=== PATIENT | female | born 1935 | race Caucasian/White ===

== ENCOUNTER 2016-07-16 16:49 | Emergency (ER) | payer MEDICARE ==
[~2016-07-16] VITALS: Ht 154.9 cm; Wt 47.7 kg
[~2016-07-16 16:49] MED LIST: ALPR1TAB7 PO; ASPI-628 PO; CARV25TA2 PO; DOCU100C8 PO; FLUT10.62 IH; FRSM80T PO; LISI-567 PO; NEPHVIT PO; OMEG1CAP5 PO; OXYC10TA8 PO; [UNRECOGNIZED DRUG - CODE] PO
[2016-07-16 16:56] VITALS: BP 117/59; PULSE 113; RESP 17; O2SAT 100
--- NOTE | 2016-07-16 17:03 | ED.REPORT ---
HPI-General Illness Date of Service July 16, 2016 ED Provider: The patient is a 81 year old female with history of atrial fibrillation and renal failure on dialysis, who was brought to [facility] from [facility] by [employer] for atrial fibrillation with rapid ventricular response. The patient states on she developed a congested nose and headache. She had dialysis yesterday and felt more "beat" than normal and didn't have an appetite. She went to bed much earlier than normal last night due to her fatigue and malaise. Last night she woke up about 3 times throughout the night and felt like she needed to have a bowel movement. She has experienced issues with constipation in the past. When straining to have a bowel movement last night she felt herself go into atrial fibrillation. She has had similar symptoms multiple times in the past but is normally able to get out of by "meditating." She was unable to get herself back into a normal rhythm today and she has also noticed an elevated heart rate, diaphoresis, nausea, and dizziness. She felt like she was going to pass out but was able to sit on the ground. Her pulse at that time in the 140's. She felt like something was wrong and called medics. She is not able to feel the irregular rhythm but knew based on her symptoms she was in atrial fibrillation. She denies palpitations, chest pain, fever, chills or shortness of breath. She has been taking Eliquis for the last 2 months but has been out of it for 2 weeks. She takes aspirin occasionally but did not take any today. Nursing Notes Stated Complaint: RAPID HEART RATE Chief Complaint: Dysrhythmia/Cardiac Nursing Notes Reviewed: Yes Allergies: Coded Allergies: adhesive (Verified Allergy, Unknown, UNKNOWN, 11/11/13) cefazolin sodium (Verified Allergy, Unknown, UNKNOWN, 11/11/13) codeine (Verified Allergy, Unknown, UNKNOWN, 11/11/13) hydrocodone bitartrate (Verified Allergy, Unknown, UNKNOWN, 11/11/13) iodine (Verified Allergy, Unknown, UNKNOWN, 11/11/13) shellfish derived (Verified Allergy, Unknown, UNKNOWN, 11/11/13) Uncoded Allergies: DARVOCET (Allergy, Unknown, UNKNOWN, 02/26/13) Scheduled Aspirin (Aspir 81) 81 Mg Tablet.dr 81 MG PO DAILY Carvedilol (Carvedilol) 25 Mg Tablet 12.5 MG PO BID Furosemide (Furosemide) 80 Mg Tab 80 MG PO DAILY DO NOT TAKE ON DIALYSIS DAYS Lisinopril (Lisinopril) 20 Mg Tablet 10 MG PO BID [place]-3 Fatty Acids/Fish Oil (Fish Oil 1,000 mg Capsule) 1 Each Capsule 1 EACH PO DAILY Vitamin B Complex/Vit C (Nkechi-Zen Tablet) 1 Tab Tab 1 TAB PO DAILY Scheduled PRN Alprazolam (Alprazolam) 1 Mg Tablet 1 MG PO HS PRN PRN For Anxiety Docusate Sodium (Docusate Sodium) 100 Mg Capsule 100 MG PO DAILY PRN PRN For Constipation Fluticasone Propionate (Flovent HFA 44 mcg) 10.6 Gm Aer.w.adap 2 PUFFS IH BID PRN PRN For Cough Lactulose (Enulose) 10 Gm/15 Ml Soln 30 ML PO DAILY PRN PRN For Constipation oxyCODONE (oxyCODONE) 10 Mg Tablet 5 MG PO Q4H PRN PRN For Pain General Time Seen by MD: 17:03 Chief Complaint Other (rapid heart rate) Hx Obtained From: Patient, EMS Arrived By: [facility] Sudden in Onset?: Yes Onset Occurred: Yesterday Symptom Duration: Since onset Severity: Current: No pain currently Severity: Maximum: No pain Recent Healthcare: No recent hospitalization, Recent doctor visit Similar Sx Previous: No Past Medical History Past Medical History Atrial fibrillation Renal failure on dialysis Asthma Family History Noncontributory Smoking History Unknown if Ever Smoker Social History Other Social History: Good social support Ambulatory Status Independent Review of Systems +decreased appetite, elevated heart rate Full Review of Systems Constitutional: Reports: Fatigue, Malaise, Denies: Chills, Fever Ears / Nose / Throat: Reports: Nasal congestion Respiratory: Denies: Shortness of breath Cardiovascular: Denies: Chest pain, Palpitations GI: Reports: Nausea Skin: Reports Diaphoresis Neurologic: Reports: Dizziness, Syncope (near) Complete sys rev & neg: except as marked. Physical Exam Vital Signs Vital Signs Date Time Temp Pulse Resp B/P Pulse Ox O2 Delivery O2 Flow Rate FiO2 07/16/16 21:18 36.8 64 18 139/40 99 Room Air 07/16/16 19:04 58 19 120/34 98 Room Air 07/16/16 18:43 113 123/41 07/16/16 18:09 123 129/60 07/16/16 16:56 36.4 113 17 117/59 100 Room Air Initial VS: Reviewed, Vital signs abnormal Head / Eyes: Atraumatic, Normocephalic, PERRL ENT: Mucous membranes moist, Conjunctiva normal, No scleral icterus Neck: Supple, Non-tender, Full range of motion Abdomen / GI: Soft, Non-tender, No guarding, No rebound, No distention Lymphatic: No lymphadenopathy Extremities: Vascular intact, Neuro intact, No swelling, No tenderness Skin: Warm, Dry, No cyanosis Neurologic: Alert, Oriented, Nonfocal Psychiatric: Mood/affect normal, Behavior normal, Normal thought content General/Constitutional: Awake, Alert, Cooperative Respiratory / Chest: Breath sounds = bilat, No respiratory distress, No rales, No rhonchi, No retractions, No stridor, No chest tenderness, No chest wall deformity Wheezing / Retractions: Positive: Wheezing mild Cardiovascular: Heart sounds NL Heart Rate / Rhythm: Positive: Irreg irregular rhythm, Tachycardia Interpretation & Diagnostics Lab Results Interpretation Result Diagram: 07/16/16 1725 07/16/16 1725 Test 07/16/16 17:25 07/16/16 18:00 07/16/16 18:41 07/16/16 19:37 White Blood Count 9.9th/mm3 (3.8-10.1) Red Blood Count 4.27mil/mm3 (3.90-5.20) Hemoglobin 13.9g/dL (12.0-15.6) Hematocrit 41.8% (35.0-46.0) Mean Corpuscular Volume 97.9fL (81-100) Mean Corpuscular Hemoglobin 32.6pg (27.0-35.0) Mean Corpuscular Hemoglobin Concent 33.3% (32.0-37.0) Red Cell Distribution Width 13.7% (12.3-15.4) Platelet Count 171bil/L (150-400) Neutrophils (%) (Auto) 73.6% (40-74) Lymphocytes (%) (Auto) 10.6% (14-46) Monocytes (%) (Auto) 12.9% (4-12) Eosinophils (%) (Auto) 2.0% (0-5) Basophils (%) (Auto) 0.6% (0-3) Sodium Level 137mEq/L (134-144) Potassium Level 3.9mEq/L (3.5-5.2) Chloride Level 92mEq/L (97-108) Carbon Dioxide Level 25mmol/L (18-29) Blood Urea Nitrogen 32mg/dL (8-27) Creatinine 3.31mg/dL (0.57-1.00) Estimat Glomerular Filtration Rate 19mL/min (>59) Glucose Level 111mg/dL (60-99) Calcium Level 9.9mg/dL (8.5-10.1) Magnesium Level 2.4mg/dL (1.6-2.6) Total Bilirubin 0.5mg/dL (0.0-1.2) Aspartate Amino Transf (AST/SGOT) 24U/L (0-50) Alanine Aminotransferase (ALT/SGPT) 15U/L (0-32) Alkaline Phosphatase 112U/L (25-165) Total Protein 7.8g/dL (6.4-8.4) Albumin 4.4g/dL (3.4-5.0) Hold Nicholas Top Tube Received (Received) Hold Urine Received (Received) Urine Color Yellow (YELLOW) Urine Appearance Clear (CLEAR,HAZY) Urine pH 7.5 (5.0-8.0) Urine Specific [place] 1.010 (1.003-1.035) Urine Protein Negativemg/dL (NEG,TRACE) Urine Glucose (UA) Negativemg/dL (NEGATIVE) Urine Ketones Negativemg/dL (NEGATIVE) Urine Occult Blood Negative (NEGATIVE) Urine Nitrite Negative (NEGATIVE) Urine Bilirubin Negative (NEGATIVE) Urine Urobilinogen Normalmg/dL (NORMAL) Urine Leukocyte Esterase Negative (NEGATIVE) Urine RBC 0-2/hpf (0-2) Urine WBC 0-5/hpf (0-5) Urine Epithelial Cells Few/hpf (NONE-MOD) Urine Crystals None seen (NONE SEEN) Urine Bacteria Few/hpf (NONE-FEW) Urine Hyaline Casts None/lpf (NONE) Urine Granular Casts None seen (NONE SEEN) Urine Waxy Casts None seen (NONE SEEN) Urine Red Blood Cell Casts None seen (NONE SEEN) Urine White Blood Cell Casts None seen (NONE SEEN) Urine Mucus None seen (None Seen) Urine Trichomonas None seen (NONE SEEN) Urine Yeast None (NONE SEEN) Urinalysis Comment None Urine Culture Reflexed Not indicated Troponin T 0.030ug/L (0.0-0.011) ECG Interpretation ECG Interpretation: Atrial fibrillation with a rate of 138 Increased QTc Inferior Q waves in III and aVF No acute ST changes Time: 17:04 Interpreted by: ED physician X-Ray Chest Interpretation Chest Xray Interpretation: IMPRESSION: No acute disease Mild scattered scarring/atelectasis Dictated by: Roosevelt Singh M.D. on 07/16/2016 at 17:42 Interpretation / Wet Read by: Interpret - Radiologist Re-Eval/Medical Decision Med Decision/Clinical Course The patient presents in rapid A. fib fibrillation, she has been in it for less than 24 hours. 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 She is a known history of paroxysmal atrial fibrillation and was treated chemically here and spontaneously cardioverted. The patient had some atypical chest pain 2 days ago and has a slightly elevated troponin however one level in the setting of renal failure is not very helpful. The patient had a second troponin which came down and she has not had any chest pain and does not have any acute EKG changes. Source of Hx: Old records, EMS Time of Eval: 20:05 Re-Evaluation/Progress Note: Rechecked the patient. Time of Eval: 20:47 Re-Evaluation/Progress Note: Rechecked the patient. Discussed lab results, diagnosis, and plan for discharge. All questions were addressed. Time of Eval: 20:55 Re-Evaluation/Progress Note: Spoke with the nursing supervisor elementary education about getting the patient a bed at the [facility]. Counseled Regarding: Diagnosis, Lab results, Need for follow-up, When/why to return to ED Discharge & Departure Primary Impression: Paroxysmal atrial fibrillation Disposition: Home Discharge Condition All VS Reviewed: Yes Condition: Stable Patient Instructions: Atrial Fibrillation (GEN) Additional Instructions: Thank you for entrusting us with your care today. You are now back in a normal sinus rhythm. Your workup today included: blood work, EKGs, and a chest x-ray. Your results are reassuring. Continue to followup with your regular doctors to manage your medication. Seek care for any new or concerning symptoms. Referrals: Volodymyr York MD (PCP) Scribe Attestation Portions of this note were transcribed by Debi Barrera. I, Dr. Alexander personally performed the history, physical exam and medical decision-making; I reviewed and confirmed the accuracy of the information in the transcribed note. Signed by: Denisa Mullen, 07/16/2016 at 2115. copies to: Volodymyr York MD, Jena M MD July 16, 2016 17:03 Debi Barrera July 16, 2016 17:09
[2016-07-16 17:36] LABS: BASOPHILS % (AUTO) 0.6 % (0-3); MONOCYTES % (AUTO) 12.9 % (4-12); Mean Corpuscular Hemoglobin 32.6 pg (27.0-35.0); Mean Corpuscular Volume 97.9 fL (81-100); NEUTROPHILS % (AUTO) 73.6 % (40-74); Platelet Count 171 bil/L (150-400)
--- NOTE | 2016-07-16 17:45 | DRSVH ---
PROCEDURE: X-RAY CHEST ONE VIEW, PORTABLE ([id number]) INDICATIONS: AFIB TECHNIQUE: One view of the chest was acquired. COMPARISON: [facility], , CHEST 2VW, 04/30/2013, 7:58. FINDINGS: Surgical changes and devices: Partially visualized thoracic spinal instrumentation Lungs and pleura: No pleural effusions or pneumothorax. Lungs are clear. Low-grade scarring/atelec tasis Mediastinum: Mediastinal contours appear normal. Heart size is normal. Bones and chest wall: No suspicious bony lesions. Overlying soft tissues appear unremarkable. IMPRESSION: No acute disease Mild scattered scarring/atelectasis Dictated by: Roosevelt Singh M.D. on 07/16/2016 at 17:42 Approved by: Roosevelt Singh M.D. on 07/16/2016 at 17:44
[2016-07-16] MEDS ORDERED: Diltiazem Inj 125 MG in 0.9% Sodium Chloride 100 ML, Pharmacy To Mix 1 EA IV SCH (17:50)
[2016-07-16] MEDS ORDERED: Diltiazem 5 mg/mL 5 mL Inj IVPUSH ONE (17:50)
[2016-07-16 18:09] VITALS: BP 129/60; PULSE 123
[2016-07-16 18:17] LABS: TROPONIN T 0.033 ug/L (0.0-0.011)
[2016-07-16 18:18] LABS: Magnesium 2.4 mg/dL (1.6-2.6)
[2016-07-16 18:43] VITALS: BP 123/41; PULSE 113
[2016-07-16] MEDS ORDERED: 0.9% Sodium Chloride 250 ML IV ONE (18:55)
[2016-07-16 19:04] VITALS: BP 120/34; PULSE 58; RESP 19; O2SAT 98
[2016-07-16 19:30] LABS: APPEARANCE,URINE CLEAR (CLEAR,HAZY); COLOR,URINE YELLOW (YELLOW); OCCULT BLOOD,URINE NEGATIVE (NEGATIVE); PH,URINE 7.5 (5.0-8.0); UROBILINOGEN,URINE NORMAL (NORMAL)
[2016-07-16 21:18] VITALS: BP 139/40; PULSE 64; RESP 18; O2SAT 99
== END 2016-07-16 21:19 | disposition home or self-care (01) ==
LOC: SED 16:49
DX: I48.0 Paroxysmal atrial fibrillation (principal); J45.909 Unspecified asthma, uncomplicated; Z88.8 Allergy status to other drugs, medicaments and biological substances; Z88.5 Allergy status to narcotic agent; Z99.2 Dependence on renal dialysis; Z79.82 Long term (current) use of aspirin; Z91.013 Allergy to seafood
CPT/HCPCS: 36415; 71010; 80053; 81000; 83735; 84484; 85025; 93005; 96374; 96376; 99285; J7050